=== PATIENT | female | born 1960 | race African-American/Black ===

== ENCOUNTER 2018-12-25 18:39 | Emergency (ER) | payer MEDICAID ==
[~2018-12-25 18:39] MED LIST: ASPI81CH43 GT; ATEN50TA PO; DIAZ2TAB OR; FLUT250M2 INH; FURO20TA PO; HYDR25TA4 PO; LEV100T GT; POTA10SO11 PO; [UNRECOGNIZED DRUG - CODE] MT
[2018-12-25 18:54] VITALS: BP 154/79
[2018-12-25 20:17] LABS: Basophils # (auto) 0.1 uL; Eosinophils # (auto) 0.2 uL; Eosinophils % (auto) 2.5 % (0.0-7.0); Hemoglobin 13.2 g/dL (12.2-16.2); Lymphocytes % (auto) 27.1 % (10.0-50.0); Mean Corpuscular Hemoglobin 30.7 pg (28.0-32.0); Mean Corpuscular Hgb Conc. 33.8 g/dL (32.0-36.0); Mean Corpuscular Volume 90.8 fL (80.0-100.0); Monocytes # (auto) 0.4 uL; Monocytes % (auto) 5.4 % (0.0-12.0); Neutrophils # (auto) 4.7 uL; Nucleated Red Blood Cells % 0.1 %; Platelet Count (auto) 297 10^3/uL (140-450); Red Cell Distribution Width 13.1 % (11.8-14.3); White Blood Cell 7.4 10^3/uL (4.4-10.8)
[2018-12-25 20:32] LABS: Alanine Aminotransferase 17 U/L (13-56); Albumin 4.2 g/dL (3.4-5.0); Anion Gap 14 (5-15); Aspartate Aminotransferase 7 U/L (15-37); BUN/Creatinine Ratio 19.7; Blood Urea Nitrogen 15 mg/dL (7-18); Calcium 8.8 mg/dL (8.5-10.1); Carbon Dioxide 22 mmol/L (21-32); Chloride 105 mmol/L (98-107); GFR African American 101 mL/min; GFR Non-African American 83 mL/min; Glucose 84 mg/dL (74-106); Magnesium 2.3 mg/dL (1.6-2.6); Potassium 3.2 mmol/L (3.5-5.1); Sodium 141 mmol/L (136-145)
[2018-12-25 20:37] LABS: Alkaline Phosphatase 53 U/L (45-117); Bilirubin, Total 0.7 mg/dL (0.2-1.0); Total Protein 8.2 g/dL (6.4-8.2)
[2018-12-25] MEDS ORDERED: POTASSIUM CHL 20 Meq TABLET PO ONE (23:00)
== END 2018-12-25 23:40 | disposition home or self-care (01) ==
LOC: ER 18:48
DX: R07.89 Other chest pain (principal); E87.6 Hypokalemia; M54.12 Radiculopathy, cervical region; I25.10 Atherosclerotic heart disease of native coronary artery without angina pectoris; I10 Essential (primary) hypertension; I11.0 Hypertensive heart disease with heart failure; I50.9 Heart failure, unspecified; E78.5 Hyperlipidemia, unspecified; J45.909 Unspecified asthma, uncomplicated; I25.2 Old myocardial infarction; Z86.39 Personal history of other endocrine, nutritional and metabolic disease; Z86.73 Personal history of transient ischemic attack (TIA), and cerebral infarction without residual deficits; Z98.51 Tubal ligation status; Z88.0 Allergy status to penicillin; Z88.1 Allergy status to other antibiotic agents
CPT/HCPCS: 36415; 71046; 80053; 83735; 84484; 85025; 93005

== ENCOUNTER 2019-12-07 14:16 | Emergency (ER) | payer MEDICAID ==
[~2019-12-07] VITALS: Ht 162.6 cm; Wt 90.7 kg
[~2019-12-07 14:16] MED LIST changes: +FURO1TAB33 PO; -FURO20TA PO
[2019-12-07 14:26] VITALS: BP 155/113
[2019-12-07 15:02] LABS: Basophils # (auto) 0.1 uL; Basophils % (auto) 0.6 % (0.0-2.0); Eosinophils # (auto) 0 uL; Eosinophils % (auto) 0.2 % (0.0-7.0); Hematocrit 43.7 % (36.0-46.0); Hemoglobin 15.2 g/dL (12.2-16.2); Lymphocytes # (auto) 2.6 uL; Lymphocytes % (auto) 17.2 % (10.0-50.0); Mean Corpuscular Hemoglobin 30.4 pg (28.0-32.0); Mean Corpuscular Hgb Conc. 34.7 g/dL (32.0-36.0); Mean Corpuscular Volume 87.8 fL (80.0-100.0); Monocytes # (auto) 1.2 uL; Neutrophils # (auto) 11.1 uL; Nucleated Red Blood Cells % 0.1 %; Platelet Count (auto) 417 10^3/uL (140-450); Red Blood Cells 4.98 10^6/uL (4.0-5.20)
[2019-12-07 15:19] LABS: Albumin 4.4 g/dL (3.4-5.0); Anion Gap 10 (5-15); Blood Urea Nitrogen 17 mg/dL (7-18); Calcium 9.9 mg/dL (8.5-10.1); Carbon Dioxide 25 mmol/L (21-32); Chloride 100 mmol/L (98-107); Glucose 113 mg/dL (74-106); Sodium 135 mmol/L (136-145)
[2019-12-07 15:27] LABS: Alanine Aminotransferase 14 U/L (13-56); Alkaline Phosphatase 57 U/L (45-117); Aspartate Aminotransferase 8 U/L (15-37); BUN/Creatinine Ratio 13.9; Bilirubin, Total 1.2 mg/dL (0.2-1.0); GFR African American 58 mL/min; GFR Non-African American 48 mL/min; Total Protein 8.4 g/dL (6.4-8.2)
[2019-12-07 15:30] LABS: Potassium 2.8 mmol/L (3.5-5.1)
[2019-12-07] MEDS ORDERED: POTASSIUM CHL 20 Meq TABLET PO ONE (16:15)
== END 2019-12-07 16:42 | disposition home or self-care (01) ==
LOC: ER 14:16 → EDUNIT# 14:16 → EDBD 14:16 → ER 16:42
DX: J20.9 Acute bronchitis, unspecified (principal); E87.6 Hypokalemia; J45.909 Unspecified asthma, uncomplicated; I11.0 Hypertensive heart disease with heart failure; I50.9 Heart failure, unspecified; E78.5 Hyperlipidemia, unspecified; I25.2 Old myocardial infarction; Z98.51 Tubal ligation status; Z86.73 Personal history of transient ischemic attack (TIA), and cerebral infarction without residual deficits; Z88.0 Allergy status to penicillin; Z88.6 Allergy status to analgesic agent; Z79.82 Long term (current) use of aspirin; Z79.899 Other long term (current) drug therapy
CPT/HCPCS: 36415; 71046; 80053; 83880; 84484; 85025; 93005

== ENCOUNTER 2023-08-21 20:52 | Inpatient (IN) | payer MEDICAID ==
[~2023-08-21] VITALS: Ht 167.6 cm; Wt 90.5 kg
[~2023-08-21 20:52] MED LIST changes: +DIAZ-680 OR; -DIAZ2TAB OR
[2023-08-21] MEDS ORDERED: hydrALAZINE HCL 20 MG/ML VL IV ONE (21:30)
[2023-08-21] MEDS ORDERED: MORPHINE SULFATE 4 MG/ML SYR/VIAL IV ONE (21:30)
[2023-08-21] MEDS ORDERED: PANTOPRAZOLE 40 MG/10 ML VIAL INJ IV ONE (21:30)
[2023-08-21] MEDS ORDERED: ONDANSETRON HCL 4 MG/2 ML VIAL IV ONE (21:30)
[2023-08-21 21:39] LABS: Basophils # (auto) 0.1 10 ^3/uL (0-0.2); Basophils % (auto) 0.6 % (0.0-2.0); Eosinophils # (auto) 0 10 ^3/uL (0-0.8); Hematocrit 39.3 % (36.0-46.0); Hemoglobin 13.4 g/dL (12.2-16.2); Lymphocytes # (auto) 1.2 10 ^3/uL (0.4-5.4); Lymphocytes % (auto) 10.2 % (10.0-50.0); Mean Corpuscular Hemoglobin 30.1 pg (28.0-32.0); Mean Corpuscular Hgb Conc. 34.1 g/dL (32.0-36.0); Mean Corpuscular Volume 88.4 fL (80.0-100.0); Monocytes # (auto) 0.2 10 ^3/uL (0-1.3); Monocytes % (auto) 1.5 % (0.0-12.0); Neutrophils # (auto) 9.9 10 ^3/uL (1.6-8.6); Neutrophils % (auto) 87.7 % (37.0-80.0); Red Blood Cells 4.44 10^6/uL (4.0-5.20); Red Cell Distribution Width 13.1 % (11.8-14.3); White Blood Cell 11.3 10^3/uL (4.4-10.8)
[2023-08-21] MEDS ORDERED: IOHEXOL 350 MG/ML 100ML IJ ONE (21:52)
[2023-08-21 22:02] LABS: Alanine Aminotransferase 11 U/L (7-40); Albumin 5.4 g/dL (3.2-4.8); Alkaline Phosphatase 69 U/L (46-116); Anion Gap 12 (5-15); Aspartate Aminotransferase < 8 U/L (13-40); Blood Urea Nitrogen 6 mg/dL (9-23); Calcium 10.7 mg/dL (8.7-10.4); Carbon Dioxide 24 mmol/L (20-30); Chloride 101 mmol/L (98-107); Glucose 129 mg/dL (74-106); Lipase 44 U/L (12-53); Magnesium 1.9 mg/dL (1.6-2.6); Sodium 137 mmol/L (136-145)
[2023-08-21 22:03] LABS: Bilirubin, Total 1.1 mg/dL (0.2-1.0); Total Protein 8.4 g/dL (5.7-8.2)
[2023-08-21 22:07] LABS: Potassium 2.8 mmol/L (3.5-5.1)
[2023-08-21 22:08] VITALS: PULSE 51; RESP 13; O2SAT 97
[2023-08-21 23:22] LABS: INR 1.01 (0.9-1.15); Partial Thromboplastin Time 20.9 SEC (24.5-34.5); Prothrombin Time 10.6 sec (9.3-11.8)
[2023-08-21] MEDS: POTASSIUM CHL 20MEQ/100ML 100 ML IV SCH (23:31)
[2023-08-21 23:34] LABS: Urine Bacteria NONE SEEN /hpf (None Seen); Urine Blood Negative /uL (Negative); Urine Clarity Clear (Clear); Urine Color Yellow (Yellow); Urine Mucus MODERATE (None Seen); Urine Protein, UAD 3+ (Negative); Urine Specific Gravity 1.035 (1.001-1.035); Urine Urobilinogen Normal (Negative); Urine WBC 9 /hpf (0 - 5); Urine pH 6.5 (5.0-8.0)
[2023-08-22] VITALS (8 sets, daily range): BP systolic 102–202; BP diastolic 69–100; PULSE 58–94; RESP 16–20; TEMP 98.2–99; O2SAT 97–100
[2023-08-22] MEDS ORDERED: NITROGLYCERIN 0.4 MG SL TAB SL PRN (00:30)
[2023-08-22] MEDS ORDERED: MORPHINE SULFATE INJ 2 MG/ml SYRG IV PRN (00:30)
[2023-08-22] MEDS ORDERED: ACETAMINOPHEN 325 MG TAB PO PRN (00:30)
[2023-08-22] MEDS: POTASSIUM CHL 20MEQ/100ML 100 ML IV SCH (01:06)
[2023-08-22] MEDS: hydrALAZINE HCL 20 MG/ML VL IV PRN ×2 (01:27→12:57)
[2023-08-22] MEDS: ONDANSETRON HCL 4 MG/2 ML VIAL IV PRN ×2 (01:28→09:08)
[2023-08-22] MEDS: HYDROcodone-ACET 5/325MG TAB PO PRN ×3 (01:28→10:35)
[2023-08-22] MEDS: LEVOTHYROXINE SODIUM 50 MCG TAB PO SCH (06:31)
[2023-08-22] MEDS: HCTZ 25 MG TAB PO SCH (09:07)
[2023-08-22] MEDS: amLODIPine BESYLATE 5 MG TAB PO SCH (09:08)
[2023-08-22] MEDS ORDERED: levoFLOXacin 500MG 100 ML IV SCH (10:00)
[2023-08-22] MEDS ORDERED: HYDR-4798 PO (10:11)
[2023-08-22] MEDS: HYDROcodone-ACET 10/325MG TAB PO PRN (17:29)
[2023-08-22] MEDS: DOCUSATE SOD 100 MG CAP PO SCH (21:18)
[2023-08-23] VITALS (11 sets, daily range): BP systolic 107–180; BP diastolic 60–94; PULSE 60–101; RESP 17–23; TEMP 97.7–98.5; O2SAT 96–100
[2023-08-23] MEDS: hydrALAZINE HCL 20 MG/ML VL IV PRN ×3 (05:02→21:13)
[2023-08-23 05:52] LABS: Basophils # (auto) 0 10 ^3/uL (0-0.2); Basophils % (auto) 0.3 % (0.0-2.0); Eosinophils # (auto) 0 10 ^3/uL (0-0.8); Eosinophils % (auto) 0.2 % (0.0-7.0); Hematocrit 42.3 % (36.0-46.0); Hemoglobin 14.3 g/dL (12.2-16.2); Lymphocytes # (auto) 2.6 10 ^3/uL (0.4-5.4); Lymphocytes % (auto) 21.7 % (10.0-50.0); Mean Corpuscular Hemoglobin 30.3 pg (28.0-32.0); Mean Corpuscular Hgb Conc. 33.9 g/dL (32.0-36.0); Mean Corpuscular Volume 89.3 fL (80.0-100.0); Monocytes # (auto) 0.9 10 ^3/uL (0-1.3); Monocytes % (auto) 7.1 % (0.0-12.0); Neutrophils # (auto) 8.6 10 ^3/uL (1.6-8.6); Neutrophils % (auto) 70.7 % (37.0-80.0); Red Blood Cells 4.74 10^6/uL (4.0-5.20); Red Cell Distribution Width 13.4 % (11.8-14.3); White Blood Cell 12.2 10^3/uL (4.4-10.8)
[2023-08-23 06:03] LABS: Chloride 101 mmol/L (98-107); Sodium 135 mmol/L (136-145)
[2023-08-23 06:04] LABS: Anion Gap 9 (5-15); Calcium 10.4 mg/dL (8.5-10.1); Carbon Dioxide 25 mmol/L (20-30)
[2023-08-23 06:09] LABS: BUN/Creatinine Ratio 5.7 (10.0-20.0); Blood Urea Nitrogen 5 mg/dL (9-23); Glucose 108 mg/dL (74-106)
[2023-08-23] MEDS: ONDANSETRON HCL 4 MG/2 ML VIAL IV PRN ×2 (06:18→21:17)
[2023-08-23 06:35] LABS: Potassium 2.9 mmol/L (3.5-5.1)
[2023-08-23] MEDS: LEVOTHYROXINE SODIUM 50 MCG TAB PO SCH (07:00)
[2023-08-23] MEDS: POTASSIUM CHL 20MEQ/100ML 100 ML IV SCH ×5 (07:36→15:34)
[2023-08-23] MEDS: DOCUSATE SOD 100 MG CAP PO SCH ×2 (09:01→21:18)
[2023-08-23] MEDS: HCTZ 25 MG TAB PO SCH (09:02)
[2023-08-23] MEDS: amLODIPine BESYLATE 5 MG TAB PO SCH (09:02)
[2023-08-23] MEDS ORDERED: LISINOPRIL 5 MG TAB PO ONE (10:15)
[2023-08-23] MEDS ORDERED: amLODIPine BESYLATE 5 MG TAB PO ONE (10:15)
[2023-08-23] MEDS: HYDROcodone-ACET 10/325MG TAB PO PRN ×2 (13:55→21:16)
[2023-08-23] MEDS ORDERED: ALBUTEROL SULF 2.5 MG/0.5ML(0.5%) NEB SOLN NEB PRN (16:30)
[2023-08-23] MEDS: levoFLOXacin 500MG 100 ML IV SCH (17:11)
[2023-08-24] VITALS (10 sets, daily range): BP systolic 106–134; BP diastolic 66–78; PULSE 75–112; RESP 16–20; TEMP 98.1–98.6; O2SAT 97–100
[2023-08-24] MEDS: LEVOTHYROXINE SODIUM 50 MCG TAB PO SCH (06:19)
[2023-08-24] MEDS: HYDROcodone-ACET 10/325MG TAB PO PRN ×2 (06:29→21:49)
[2023-08-24 07:02] LABS: Chloride 101 mmol/L (98-107); Sodium 135 mmol/L (136-145)
[2023-08-24 07:03] LABS: Anion Gap 12 (5-15); Calcium 9.7 mg/dL (8.7-10.4); Carbon Dioxide 22 mmol/L (20-30)
[2023-08-24 07:08] LABS: Blood Urea Nitrogen 5 mg/dL (9-23); Glucose 117 mg/dL (74-106)
[2023-08-24 07:11] LABS: Potassium 2.9 mmol/L (3.5-5.1)
[2023-08-24 07:23] LABS: Basophils # (auto) 0 10 ^3/uL (0-0.2); Basophils % (auto) 0.4 % (0.0-2.0); Eosinophils # (auto) 0 10 ^3/uL (0-0.8); Eosinophils % (auto) 0.2 % (0.0-7.0); Hematocrit 40.2 % (36.0-46.0); Hemoglobin 13.3 g/dL (12.2-16.2); Lymphocytes # (auto) 2.1 10 ^3/uL (0.4-5.4); Lymphocytes % (auto) 17.1 % (10.0-50.0); Mean Corpuscular Hemoglobin 29.8 pg (28.0-32.0); Mean Corpuscular Hgb Conc. 33.2 g/dL (32.0-36.0); Monocytes # (auto) 1.1 10 ^3/uL (0-1.3); Monocytes % (auto) 8.7 % (0.0-12.0); Neutrophils # (auto) 9.1 10 ^3/uL (1.6-8.6); Neutrophils % (auto) 73.6 % (37.0-80.0); Nucleated Red Blood Cells % 0.1 %; Red Blood Cells 4.47 10^6/uL (4.0-5.20); Red Cell Distribution Width 13.4 % (11.8-14.3); White Blood Cell 12.4 10^3/uL (4.4-10.8)
[2023-08-24 08:18] LABS: Platelet Estimate Adequate
[2023-08-24] MEDS: DOCUSATE SOD 100 MG CAP PO SCH ×2 (09:58→21:49)
[2023-08-24] MEDS: amLODIPine BESYLATE 5 MG TAB PO SCH (09:59)
[2023-08-24] MEDS: HCTZ 25 MG TAB PO SCH (10:00)
[2023-08-24] MEDS ORDERED: LISINOPRIL 5 MG TAB PO SCH (10:00)
[2023-08-24] MEDS: POTASSIUM CHL 20MEQ/100ML 100 ML IV SCH ×2 (12:22→18:58)
[2023-08-24] MEDS: levoFLOXacin 500MG 100 ML IV SCH (16:56)
[2023-08-24] MEDS ORDERED: POTASSIUM CHL 20MEQ/100ML 100 ML IV SCH (21:30)
[2023-08-25] MEDS: DOCUSATE SOD 100 MG CAP PO SCH ×2 (10:00→21:21)
[2023-08-25] MEDS: HCTZ 25 MG TAB PO SCH (10:00)
[2023-08-25] MEDS: amLODIPine BESYLATE 5 MG TAB PO SCH (10:00)
[2023-08-25 11:04] LABS: Basophils # (auto) 0 10 ^3/uL (0-0.2); Basophils % (auto) 0.6 % (0.0-2.0); Eosinophils # (auto) 0 10 ^3/uL (0-0.8); Eosinophils % (auto) 0.5 % (0.0-7.0); Hematocrit 37.7 % (36.0-46.0); Hemoglobin 12.6 g/dL (12.2-16.2); Lymphocytes # (auto) 1.9 10 ^3/uL (0.4-5.4); Lymphocytes % (auto) 26.8 % (10.0-50.0); Mean Corpuscular Hemoglobin 29.8 pg (28.0-32.0); Mean Corpuscular Hgb Conc. 33.5 g/dL (32.0-36.0); Mean Corpuscular Volume 88.9 fL (80.0-100.0); Monocytes # (auto) 0.6 10 ^3/uL (0-1.3); Monocytes % (auto) 8.4 % (0.0-12.0); Neutrophils # (auto) 4.5 10 ^3/uL (1.6-8.6); Neutrophils % (auto) 63.7 % (37.0-80.0); Nucleated Red Blood Cells % 0.1 %; Red Blood Cells 4.23 10^6/uL (4.0-5.20); Red Cell Distribution Width 13.2 % (11.8-14.3)
[2023-08-25 11:20] LABS: Anion Gap 8 (5-15); Calcium 9.2 mg/dL (8.5-10.1); Carbon Dioxide 24 mmol/L (20-30); Chloride 104 mmol/L (98-107); Glucose 103 mg/dL (74-106); Potassium 3.3 mmol/L (3.5-5.1); Sodium 136 mmol/L (136-145)
[2023-08-25 11:33] LABS: BUN/Creatinine Ratio 6.8 (10.0-20.0); Blood Urea Nitrogen < 5 mg/dL (9-23)
[2023-08-25] MEDS ORDERED: AMLO1TAB23 PO (11:50)
[2023-08-25] MEDS: ONDANSETRON HCL 4 MG/2 ML VIAL IV PRN (13:49)
[2023-08-25] MEDS: POTASSIUM CHL 20MEQ/100ML 100 ML IV SCH ×2 (13:52→17:39)
[2023-08-25] MEDS: HYDROcodone-ACET 10/325MG TAB PO PRN ×2 (13:57→21:20)
[2023-08-25] MEDS ORDERED: APIX5TAB PO (14:25)
[2023-08-25 16:20] VITALS: BP 161/83; PULSE 66; RESP 19; TEMP 98.1; O2SAT 100
[2023-08-25] MEDS: levoFLOXacin 500MG 100 ML IV SCH (16:28)
[2023-08-25 18:42] VITALS: O2SAT 98
[2023-08-25 20:00] VITALS: PULSE 81
[2023-08-25] MEDS: hydrALAZINE HCL 20 MG/ML VL IV PRN (21:23)
[2023-08-25 22:00] VITALS: BP 187/99; PULSE 83; RESP 20; TEMP 98.6; O2SAT 100
[2023-08-26 05:00] VITALS: BP 128/76; PULSE 94; RESP 18; TEMP 98.8; O2SAT 99
[2023-08-26] MEDS: LEVOTHYROXINE SODIUM 50 MCG TAB PO SCH ×2 (06:10→06:11)
[2023-08-26] MEDS: HYDROcodone-ACET 10/325MG TAB PO PRN (06:10)
[2023-08-26 06:45] LABS: Anion Gap 8 (5-15); Carbon Dioxide 24 mmol/L (20-30); Chloride 104 mmol/L (98-107); Sodium 136 mmol/L (136-145)
[2023-08-26 06:46] LABS: Calcium 9.4 mg/dL (8.5-10.1)
[2023-08-26 06:51] LABS: Blood Urea Nitrogen 5 mg/dL (9-23); Glucose 108 mg/dL (74-106)
[2023-08-26 08:00] VITALS: PULSE 86
[2023-08-26] MEDS ORDERED: POTASSIUM EFFERVESENT TAB 25 MEQ GT ONE (09:15)
[2023-08-26 09:17] VITALS: BP 139/78; PULSE 87; RESP 19; TEMP 98.5; O2SAT 100
[2023-08-26] MEDS ORDERED: POTASSIUM EFFERVESENT TAB 25 MEQ PO ONE (09:30)
[2023-08-26] MEDS: HCTZ 25 MG TAB PO SCH (09:56)
[2023-08-26] MEDS: DOCUSATE SOD 100 MG CAP PO SCH (09:57)
[2023-08-26] MEDS: amLODIPine BESYLATE 5 MG TAB PO SCH (09:57)
[2023-08-26 10:00] VITALS: O2SAT 100
== END 2023-08-26 12:54 | disposition home or self-care (01) | DRG 199 ==
LOC: EDBD 20:52 → ER 20:52 → TELE 08-22 00:26 → TELE-WESTW 08-22 07:53
PROVIDERS: ADMIT Nurse Practitioner; ATTEND Internal Medicine Pulmonary Disease
DX: I16.0 Hypertensive urgency (principal); I50.9 Heart failure, unspecified; A08.4 Viral intestinal infection, unspecified; E66.01 Morbid (severe) obesity due to excess calories; E87.6 Hypokalemia; N39.0 Urinary tract infection, site not specified; K59.00 Constipation, unspecified; I25.2 Old myocardial infarction; I48.91 Unspecified atrial fibrillation; J45.909 Unspecified asthma, uncomplicated; Z88.0 Allergy status to penicillin; Z68.32 Body mass index [BMI] 32.0-32.9, adult; Z95.828 Presence of other vascular implants and grafts; Z91.013 Allergy to seafood
CPT/HCPCS: 36415; 71045; 74176; 80048; 80053; 81001; 82962; 83605; 83690; 83735; 83880; 84443; 84484; 85025; 85610; 85730; 93005; 94640; 96365; 96367; 96375; 96376; C9113; G0378; J1956; J2405; J3480